=== PATIENT | male | born 1940 | race Caucasian/White ===

== ENCOUNTER 2024-08-14 08:22 | Inpatient (IN) | payer OTHER ==
[~2024-08-14] VITALS: Ht 180.3 cm; Wt 93.0 kg
[2024-08-14 08:38] LABS: BASOPHILS % (AUTO) 0.8 % (0.0-2.0); EOSINOPHILS % (AUTO) 0 % (1.0-6.0); HEMOGLOBIN 9.2 g/dL (13.5-17.5); LYMPHOCYTES # (AUTO) 1.3 K/uL (1.0-4.8); LYMPHOCYTES % (AUTO) 5.2 % (22.0-44.0); MEAN CORPUSCULAR HEMOGLOBIN 26.7 pg (26.0-34.0); MEAN CORPUSCULAR HGB CONC 31.7 G/dL (31.0-37.0); MEAN CORPUSCULAR VOLUME 84 fL (80-100); MONOCYTES # (AUTO) 1.8 K/uL (0.1-1.0); MONOCYTES % (AUTO) 6.9 % (2.0-9.0); NEUTROPHILS # (AUTO) 22.1 K/uL (1.8-7.7); PLATELET COUNT (AUTO) 130 K/uL (150-450); RED BLOOD CELL COUNT(AUTO) 3.45 MIL/uL (4.50-5.90); RED CELL DISTRIBUTION WIDTH 18.1 % (11.5-14.5); WHITE BLOOD COUNT (AUTO) 25.4 K/uL (4.5-11.0)
[2024-08-14 08:40] LABS: NEUTROPHILS % (AUTO) 87.1 % (40.0-70.0)
[2024-08-14 08:55] LABS: ANION GAP 12 mmol/L (8-16); CALCIUM, TOTAL 7.8 mg/dL (8.8-10.5); CARBON DIOXIDE 21 mmol/L (22-29); CHLORIDE 98 mmol/L (98-107); GLOMERULAR FILTR. RATE CALC 22 mL/min (>60); GLUCOSE,RANDOM 156 mg/dL (70-110); POTASSIUM 4.2 mmol/L (3.5-5.1); SODIUM SERUM 131 mmol/L (136-145); UREA NITROGEN, BLOOD 44 mg/dL (7-18)
[2024-08-14 08:56] LABS: INR 1.3 (0.9-1.1); PROTHROMBIN TIME 13.3 SEC (9.4-11.6)
[2024-08-14 08:57] LABS: TROPONIN I-HIGH SENSITIVITY 7171 ng/L (<76)
[2024-08-14 08:59] LABS: ALANINE AMINOTRANSFERASE 86 U/L (12-78); ALBUMIN 1.5 g/dL (3.4-5.0); ALKALINE PHOSPHATASE 142 U/L (46-116); ASPARTATE AMINOTRANSFERASE 105 U/L (15-37); BILIRUBIN,TOTAL 0.8 mg/dL (0.1-1.0); CHOL/HDL RATIO 5.5 (4.2-7.3); CHOLESTEROL 77 mg/dL (131-200); HDL CHOLESTEROL 14 mg/dL (40-60); LDL CHOL (CALC.) 28 mg/dL (0-130); TOTAL PROTEIN, SERUM 5.7 g/dL (6.4-8.2); TRIGLYCERIDES 174 mg/dL (15-150)
[2024-08-14] MEDS: SODIUM CHLORIDE 0.9% 2,750 ML IV ONE (09:09)
[2024-08-14] MEDS: CefTRIAXone 1 GM/DEXTROSE 50 ML IV ONE (09:20)
[2024-08-14 09:44] LABS: APPEARANCE,URINE TURBID (CLEAR); BILIRUBIN,URINE NEGATIVE (NEGATIVE); COLOR,URINE LIGHT ORANGE (YELLOW); GLUCOSE, URINE (UA) NEGATIVE (NEGATIVE); KETONES,URINE NEGATIVE (NEGATIVE); LEUKOCYTE ESTERASE ,URINE LARGE (NEGATIVE); NITRATE,URINE NEGATIVE (NEGATIVE); OCCULT BLOOD,URINE LARGE (NEGATIVE); PROTEIN,URINE 100-200,SEE CONFIRM mg/dL (NEGATIVE); SPECIFIC GRAVITIY, URINE 1.032 (1.003-1.030); UROBILINOGEN,URINE <=1.0 mg/dL (<=1.0)
[2024-08-14 09:57] LABS: ALCOHOL, URINE DRUG SCREEN NEGATIVE (NEGATIVE); AMPHET/METH SCREEN,URINE NEGATIVE (NEGATIVE); BARBITURATE SCREEN, URINE NEGATIVE (NEGATIVE); BENZODIAZEPINES SCREEN,URINE NEGATIVE (NEGATIVE); CANNABINOID SCREEN,URINE NEGATIVE (NEGATIVE); COCAINE SCREEN,URINE NEGATIVE (NEGATIVE); METHADONE SCREEN, URINE NEGATIVE (NEGATIVE); OPIATE SCREEN,URINE NEGATIVE (NEGATIVE); PHENCYCLIDINE SCREEN,URINE NEGATIVE (NEGATIVE)
[2024-08-14] MEDS: ASPIRIN 325 MG TABLET PO ONE (10:00)
[2024-08-14] MEDS: CLOPIDOGREL BISULFATE 75 MG TABLET PO ONE (10:00)
[2024-08-14] MEDS ORDERED: LOSA100T59 PO (10:08)
[2024-08-14] MEDS ORDERED: SILO8CAP8 PO (10:08)
[2024-08-14] MEDS ORDERED: METO25 PO (10:08)
[2024-08-14] MEDS ORDERED: ATOR40TA71 PO (10:08)
[2024-08-14] MEDS ORDERED: ASPI81TA87 PO (10:08)
[2024-08-14] MEDS ORDERED: METH1TAB66 PO (10:08)
[2024-08-14 11:14] LABS: BACTERIA,URINE Many /HPF (None Seen); RBC,URINE 51-100 /HPF (0-2); SULFOSALICYLIC ACID,URINE 2+ (Negative); WBC,URINE 51-100 /HPF (0-5)
[2024-08-14] MEDS ORDERED: NOREPINEPHRINE 8 MG/0.9 % NACL 250 ML IV PRN (13:30)
[2024-08-14] MEDS: NOREPINEPHRINE 8 MG/0.9 % NACL 250 ML IV PRN (13:37)
[2024-08-14] MEDS ORDERED: BISACODYL 10 MG RECTAL RECTAL SUPPOSITORY PR PRN (14:45)
[2024-08-14] MEDS ORDERED: ONDANSETRON HCL 4 MG/2 ML VIAL IVP PRN (14:45)
[2024-08-14] MEDS: *CLINICAL-MEROPENEM DOSING CLINICAL ONE (14:51)
[2024-08-14] MEDS ORDERED: HEPARIN SODIUM,PORCINE 5,000 UNITS/ML VIAL IVP PRN (15:30)
[2024-08-14] MEDS: MEROPENEM 500 MG in SODIUM CHLORIDE 0.9% 50 ML IV ONE (15:57)
[2024-08-14] MEDS: SODIUM CHLORIDE 0.9% 1,000 ML IV ONE (15:58)
[2024-08-14 15:59] LABS: TROPONIN I-HIGH SENSITIVITY 11416 ng/L (<76)
[2024-08-14] MEDS ORDERED: HEPARIN SODIUM,PORCINE 5,000 UNITS/ML VIAL SQ SCH (16:00)
[2024-08-14] MEDS: ACETAMINOPHEN 650 MG RECTAL SUPPOSITORY PR ONE (17:10)
[2024-08-14 17:12] LABS: BASOPHILS % (AUTO) 1.2 % (0.0-2.0); EOSINOPHILS % (AUTO) 0 % (1.0-6.0); HEMATOCRIT 28.1 % (41-53); LYMPHOCYTES # (AUTO) 0.7 K/uL (1.0-4.8); LYMPHOCYTES % (AUTO) 2.5 % (22.0-44.0); MEAN CORPUSCULAR HEMOGLOBIN 26.9 pg (26.0-34.0); MEAN CORPUSCULAR HGB CONC 31.8 G/dL (31.0-37.0); MEAN CORPUSCULAR VOLUME 85 fL (80-100); MONOCYTES # (AUTO) 1.3 K/uL (0.1-1.0); MONOCYTES % (AUTO) 4.7 % (2.0-9.0); NEUTROPHILS # (AUTO) 25.5 K/uL (1.8-7.7); PLATELET COUNT (AUTO) 141 K/uL (150-450); RED BLOOD CELL COUNT(AUTO) 3.33 MIL/uL (4.50-5.90); RED CELL DISTRIBUTION WIDTH 18.5 % (11.5-14.5); WHITE BLOOD COUNT (AUTO) 27.8 K/uL (4.5-11.0)
[2024-08-14 17:15] LABS: NEUTROPHILS % (AUTO) 91.6 % (40.0-70.0)
[2024-08-14 17:25] LABS: INR 1.3 (0.9-1.1); PROTHROMBIN TIME 13.3 SEC (9.4-11.6)
[2024-08-14 17:34] LABS: RBC MORPHOLOGY COMMENT NORMAL RBC MORPH
[2024-08-14] MEDS: HEPARIN SODIUM 25000 UNITS/D5W 250 ML IV PRN (17:40)
[2024-08-14 19:00] VITALS: BP 111/53; PULSE 87; RESP 20; TEMP 97.4; O2SAT 96
[2024-08-14 20:00] VITALS: BP 113/52; PULSE 95; RESP 20; TEMP 97.4; O2SAT 96
[2024-08-14 21:00] VITALS: BP 111/53; PULSE 92; RESP 20; TEMP 97.4; O2SAT 96
[2024-08-14 22:00] VITALS: BP 106/49; PULSE 90; RESP 20; TEMP 97.4; O2SAT 96
[2024-08-14 23:00] VITALS: BP 126/56; PULSE 101; RESP 22; O2SAT 96
[2024-08-14] MEDS: CHLORHEXIDINE GLUCONATE 2% TOWELETTE [2'S/6'S] TP SCH (23:09)
[2024-08-15] VITALS: BP 117/57; PULSE 101; RESP 22; TEMP 97.8; O2SAT 96
[2024-08-15 01:00] VITALS: BP 97/55; PULSE 106; RESP 22; O2SAT 96
[2024-08-15 02:00] VITALS: BP 113/52; PULSE 96; RESP 22; O2SAT 96
[2024-08-15 03:00] VITALS: BP 115/49; PULSE 105; RESP 22; O2SAT 96
[2024-08-15 04:00] VITALS: BP 123/66; PULSE 119; RESP 22; TEMP 98.2; O2SAT 96
[2024-08-15 05:00] VITALS: BP 97/55; PULSE 106; RESP 22; O2SAT 96
[2024-08-15 05:36] LABS: BASOPHILS % (AUTO) 0.1 % (0.0-2.0); EOSINOPHILS % (AUTO) 0.2 % (1.0-6.0); HEMATOCRIT 33.4 % (41-53); HEMOGLOBIN 10.6 g/dL (13.5-17.5); LYMPHOCYTES # (AUTO) 0.9 K/uL (1.0-4.8); LYMPHOCYTES % (AUTO) 3.7 % (22.0-44.0); MEAN CORPUSCULAR HEMOGLOBIN 26.9 pg (26.0-34.0); MEAN CORPUSCULAR HGB CONC 31.8 G/dL (31.0-37.0); MEAN CORPUSCULAR VOLUME 85 fL (80-100); MONOCYTES # (AUTO) 1.3 K/uL (0.1-1.0); MONOCYTES % (AUTO) 5.4 % (2.0-9.0); NEUTROPHILS # (AUTO) 22.8 K/uL (1.8-7.7); PLATELET COUNT (AUTO) 135 K/uL (150-450); RED BLOOD CELL COUNT(AUTO) 3.94 MIL/uL (4.50-5.90); RED CELL DISTRIBUTION WIDTH 18.3 % (11.5-14.5); WHITE BLOOD COUNT (AUTO) 25.1 K/uL (4.5-11.0)
[2024-08-15 05:37] LABS: NEUTROPHILS % (AUTO) 90.6 % (40.0-70.0)
[2024-08-15 06:35] LABS: GLUCOMETER DEV NAME(LOC) ER.7; GLUCOSE,POINT OF CARE 113 MG/DL (70-110)
[2024-08-15] MEDS: PANTOPRAZOLE SODIUM 40 MG/VIAL IVP SCH (08:26)
[2024-08-15 08:51] LABS: CALCIUM, TOTAL 7.9 mg/dL (8.8-10.5); CREATININE 2.18 mg/dL (0.60-1.30); POTASSIUM 3.8 mmol/L (3.5-5.1)
[2024-08-15] MEDS: METOPROLOL TARTRATE 25 MG TABLET PO SCH (08:54)
[2024-08-15] MEDS: ASPIRIN 81 MG DR TABLET PO SCH (08:54)
[2024-08-15 09:02] LABS: TROPONIN I-HIGH SENSITIVITY 13105 ng/L (<76)
[2024-08-15] MEDS: MEROPENEM 1 GM in SODIUM CHLORIDE 0.9% 100 ML IV SCH (10:50)
[2024-08-15] MEDS: ACETAMINOPHEN 325 MG TABLET PO PRN (15:57)
[2024-08-15] MEDS: DAPTOMYCIN 500 MG in SODIUM CHLORIDE 0.9% 50 ML IV SCH (19:54)
[2024-08-15] MEDS ORDERED: SODIUM CHLORIDE 0.9% 0 ML ONE (23:39)
[2024-08-15] MEDS ORDERED: SODIUM CHLORIDE 0.9% 500 ML IV ONE (23:43)
[2024-08-15] MEDS: ACETAMINOPHEN 1000 MG/ISO-OSM 100 ML IV ONE (23:51)
[2024-08-16] VITALS (7 sets, daily range): BP systolic 113–131; BP diastolic 53–70; PULSE 84–113; RESP 18–20; TEMP 97–97.9; O2SAT 94–98
[2024-08-16 08:15] LABS: TROPONIN I-HIGH SENSITIVITY 14136 ng/L (<76)
[2024-08-16 09:28] LABS: CREATININE,URINE RANDOM 137.3 mg/dL (30.0-125.0)
[2024-08-16] MEDS: ATORVASTATIN CALCIUM 40 MG TABLET NG SCH (11:03)
[2024-08-16] MEDS: SODIUM CHLORIDE 0.9% 1,000 ML IV SCH (11:09)
[2024-08-16] MEDS ORDERED: 0.9% SODIUM CHLORIDE 5 ML NEB SOLUTION NEB ONE (13:11)
[2024-08-16] MEDS: ALBUTEROL SULFATE 2.5 MG/0.5 ML NEB SOLUTION NEB PRN (13:45)
[2024-08-16 17:08] LABS: BASOPHILS % (AUTO) 0.3 % (0.0-2.0); EOSINOPHILS % (AUTO) 0 % (1.0-6.0); HEMATOCRIT 32.3 % (41-53); HEMOGLOBIN 9.8 g/dL (13.5-17.5); LYMPHOCYTES # (AUTO) 1.5 K/uL (1.0-4.8); LYMPHOCYTES % (AUTO) 6.4 % (22.0-44.0); MEAN CORPUSCULAR HEMOGLOBIN 26.2 pg (26.0-34.0); MEAN CORPUSCULAR HGB CONC 30.4 G/dL (31.0-37.0); MEAN CORPUSCULAR VOLUME 86 fL (80-100); MONOCYTES # (AUTO) 1.4 K/uL (0.1-1.0); MONOCYTES % (AUTO) 6.2 % (2.0-9.0); PLATELET COUNT (AUTO) 158 K/uL (150-450); RED BLOOD CELL COUNT(AUTO) 3.75 MIL/uL (4.50-5.90); RED CELL DISTRIBUTION WIDTH 19.1 % (11.5-14.5)
[2024-08-16 17:12] LABS: NEUTROPHILS % (AUTO) 87.1 % (40.0-70.0)
[2024-08-16 17:16] LABS: ALBUMIN 1.4 g/dL (3.4-5.0); BILIRUBIN,DIRECT 0.5 mg/dL (0.00-0.20); BILIRUBIN,TOTAL 0.9 mg/dL (0.1-1.0); CREATININE 1.57 mg/dL (0.60-1.30); POTASSIUM 3.5 mmol/L (3.5-5.1); TOTAL PROTEIN, SERUM 5.9 g/dL (6.4-8.2)
[2024-08-16] MEDS: CLOPIDOGREL BISULFATE 75 MG TABLET PO SCH (18:07)
[2024-08-16] MEDS: HEPARIN SODIUM,PORCINE 5,000 UNITS/ML VIAL IVP PRN (18:51)
[2024-08-17 06:16] LABS: ALANINE AMINOTRANSFERASE 41 U/L (12-78); ALBUMIN 1.3 g/dL (3.4-5.0); ALKALINE PHOSPHATASE 121 U/L (46-116); ANION GAP 12 mmol/L (8-16); ASPARTATE AMINOTRANSFERASE 39 U/L (15-37); BILIRUBIN,TOTAL 0.8 mg/dL (0.1-1.0); CALCIUM, TOTAL 7.5 mg/dL (8.8-10.5); CARBON DIOXIDE 20 mmol/L (22-29); CHLORIDE 109 mmol/L (98-107); CREATININE 1.29 mg/dL (0.60-1.30); GLOMERULAR FILTR. RATE CALC 53 mL/min (>60); GLUCOSE,RANDOM 122 mg/dL (70-110); POTASSIUM 3.4 mmol/L (3.5-5.1); SODIUM SERUM 141 mmol/L (136-145); TOTAL PROTEIN, SERUM 5.3 g/dL (6.4-8.2); UREA NITROGEN, BLOOD 32 mg/dL (7-18)
[2024-08-17] MEDS: ASPIRIN 81 MG CHEWABLE TABLET PO SCH (08:46)
[2024-08-17 08:48] LABS: TROPONIN I-HIGH SENSITIVITY 11086 ng/L (<76)
[2024-08-17] MEDS: DAPTOMYCIN 500 MG in SODIUM CHLORIDE 0.9% 50 ML IV SCH (13:32)
[2024-08-17] MEDS: POTASSIUM CHL 10 MEQ/WATER 50 ML IV SCH (13:33)
[2024-08-17] MEDS: MEROPENEM 1 GM in SODIUM CHLORIDE 0.9% 100 ML IV SCH (17:56)
[2024-08-17 20:00] VITALS: BP 148/66; PULSE 106; RESP 19; TEMP 96.9; O2SAT 95
[2024-08-17] MEDS: ATORVASTATIN CALCIUM 40 MG TABLET PO SCH (21:10)
[2024-08-18] VITALS: BP 154/76; PULSE 104; RESP 20; TEMP 97.9; O2SAT 95
[2024-08-18 04:00] VITALS: BP 147/84; PULSE 113; RESP 19; TEMP 97.5; O2SAT 96
[2024-08-18 06:57] LABS: BASOPHILS % (AUTO) 0.5 % (0.0-2.0); EOSINOPHILS % (AUTO) 0 % (1.0-6.0); HEMOGLOBIN 9.3 g/dL (13.5-17.5); LYMPHOCYTES # (AUTO) 1.5 K/uL (1.0-4.8); LYMPHOCYTES % (AUTO) 9.5 % (22.0-44.0); MEAN CORPUSCULAR HEMOGLOBIN 27.2 pg (26.0-34.0); MEAN CORPUSCULAR HGB CONC 32.2 G/dL (31.0-37.0); MEAN CORPUSCULAR VOLUME 84 fL (80-100); MONOCYTES # (AUTO) 1.6 K/uL (0.1-1.0); MONOCYTES % (AUTO) 10.7 % (2.0-9.0); NEUTROPHILS # (AUTO) 12.2 K/uL (1.8-7.7); NEUTROPHILS % (AUTO) 79.3 % (40.0-70.0); PLATELET COUNT (AUTO) 186 K/uL (150-450); RED BLOOD CELL COUNT(AUTO) 3.44 MIL/uL (4.50-5.90); RED CELL DISTRIBUTION WIDTH 19.1 % (11.5-14.5); WHITE BLOOD COUNT (AUTO) 15.4 K/uL (4.5-11.0)
[2024-08-18 07:13] LABS: ANION GAP 9 mmol/L (8-16); CALCIUM, TOTAL 7.7 mg/dL (8.8-10.5); CARBON DIOXIDE 22 mmol/L (22-29); CHLORIDE 113 mmol/L (98-107); CREATININE 1.11 mg/dL (0.60-1.30); GLOMERULAR FILTR. RATE CALC > 60 mL/min (>60); GLUCOSE,RANDOM 124 mg/dL (70-110); POTASSIUM 3.4 mmol/L (3.5-5.1); SODIUM SERUM 144 mmol/L (136-145); UREA NITROGEN, BLOOD 26 mg/dL (7-18)
[2024-08-18 07:39] VITALS: BP 148/73; PULSE 114; RESP 19; TEMP 98.1; O2SAT 95
[2024-08-18] MEDS: HEPARIN SODIUM,PORCINE 5,000 UNITS/ML VIAL SQ SCH (08:34)
[2024-08-18] MEDS ORDERED: POTASSIUM CHL 10 MEQ/WATER 50 ML IV PRN (08:45)
[2024-08-18] MEDS: POTASSIUM CHLORIDE 10% 40 MEQ/30 ML LIQUID UDCUP NG PRN (08:54)
[2024-08-18 10:19] LABS: TROPONIN I-HIGH SENSITIVITY 8194 ng/L (<76)
[2024-08-18] MEDS: SODIUM CHLORIDE 0.9% 1,000 ML IV SCH (11:04)
[2024-08-18] MEDS: POTASSIUM CHLORIDE 10 MEQ ER TABLET PO ONE (11:25)
[2024-08-18 11:36] VITALS: BP 131/79; PULSE 110; RESP 18; TEMP 97.9; O2SAT 97
[2024-08-18] MEDS: AMPICILLIN SODIUM 2 GM/NS 100 ML IV SCH (13:26)
[2024-08-18 15:15] VITALS: BP 142/60; PULSE 109; RESP 18; TEMP 98; O2SAT 96
== END 2024-08-18 18:40 | disposition short-term general hospital (02) | DRG 871 ==
LOC: EMS 08:26 → EDH 15:15 → 5N 08-15 22:35 → EDH 08-16 18:45 → 5S 08-17 18:14
PROVIDERS: ADMIT Internal Medicine; ATTEND Internal Medicine
DX: A41.51 Sepsis due to Escherichia coli [E. coli] (principal); E43 Unspecified severe protein-calorie malnutrition; I21.4 Non-ST elevation (NSTEMI) myocardial infarction; R65.21 Severe sepsis with septic shock; R53.2 Functional quadriplegia; I21.A1 Myocardial infarction type 2; I63.231 Cerebral infarction due to unspecified occlusion or stenosis of right carotid arteries; N17.9 Acute kidney failure, unspecified; N39.0 Urinary tract infection, site not specified; I69.354 Hemiplegia and hemiparesis following cerebral infarction affecting left non-dominant side; E87.20 Acidosis, unspecified; I13.0 Hypertensive heart and chronic kidney disease with heart failure and stage 1 through stage 4 chronic kidney disease, or unspecified chronic kidney disease; I47.20 Ventricular tachycardia, unspecified; Z16.12 Extended spectrum beta lactamase (ESBL) resistance; Z16.21 Resistance to vancomycin; Z66 Do not resuscitate; N31.9 Neuromuscular dysfunction of bladder, unspecified; Z95.1 Presence of aortocoronary bypass graft; D64.9 Anemia, unspecified; I48.91 Unspecified atrial fibrillation; I25.10 Atherosclerotic heart disease of native coronary artery without angina pectoris; D69.6 Thrombocytopenia, unspecified; I50.9 Heart failure, unspecified; B96.20 Unspecified Escherichia coli [E. coli] as the cause of diseases classified elsewhere; I05.9 Rheumatic mitral valve disease, unspecified; B95.2 Enterococcus as the cause of diseases classified elsewhere; R13.10 Dysphagia, unspecified; E78.5 Hyperlipidemia, unspecified; N18.9 Chronic kidney disease, unspecified; E87.6 Hypokalemia; Z95.3 Presence of xenogenic heart valve; Z79.82 Long term (current) use of aspirin; Z74.01 Bed confinement status; Z68.28 Body mass index [BMI] 28.0-28.9, adult
CPT/HCPCS: 51702; 70450; 70496; 70498; 70551; 71045; 76770; 80048; 80053; 80061; 80307; 81001; 81002; 82248; 82570; 82948; 82962; 83605; 83735; 83880; 84100; 84132; 84145; 84156; 84300; 84484; 84540; 85025; 85610; 85730; 87040; 87077; 87086; 87186; 87205; 92526; 92610; 93005; 93306; 94640; 99291; 99292; C9113; J0131; J0290; J0696; J0878; J1644; J2185; J3480; J7030; J7040; J7050; 36415-L1; 36415-TC; J7613